=== PATIENT | male | born 1940 | race Caucasian/White ===

== ENCOUNTER → 2017-10-12 12:08 | Outpatient (CLI) | payer MEDICARE, OTHER, SELFPAY ==
--- NOTE | 2017-10-12 | DI.ECHO.S_ITS ---
[facility] +---------+ : : [address] : [place] : : : : [id number] : : : : Phone: [phone]+ Echocardiogram Report + + :Name: LILIANE TESFAYE Study Date: 10/12/2017 Height: 74 in : :[facility] Weight: 216 lb : : Gender: Male BSA: 2.2 m2 : :: 1940 Age: 77 yrs BP: 112/54 mmHg: :Reason For Study: Cardiomyopathy, Ischemic : :Ordering Physician: Dino Santa : :Melody Performed By: Savanna Callaway : :Referring: Dr. Mahesh Cook : + + Interpretation Summary The left ventricle is moderately dilated. Left ventricular systolic function is severely reduced. Left ventricular ejection fraction is estimated to be 25%. There has been no significant change since the previous study. There is severe hypokinesis to akinesis along the most of the septum, apical, mid to distal anterior, and part of anterolateral wall. The right ventricle is normal in size and function. There is a pacemaker lead in the right ventricle. The right ventricular systolic pressure is estimated at 28 mmHg assuming a right atrial pressure of 3 mm Hg. RVSP has decreased. The left atrium is severely dilated. The right atrium is moderately dilated. There is mild to moderate mitral regurgitation. There is no other significant valvular heart disease. The aortic root is normal size. Procedure: A two-dimensional transthoracic echocardiogram with color flow and Doppler was performed. The study quality was technically good. Comparison is made with the echocardiogram of 03-08-16. The heart rate ranged between 74- 76 bpm during the study. Left Ventricle: The left ventricle is moderately dilated. There is normal left ventricular wall thickness. Left ventricular systolic function is severely reduced. Left ventricular ejection fraction is estimated to be 25%. There has been no significant change since the previous study. There is severe hypokinesis to akinesis along the most of the septum, apical, mid to distal anterior, and part of anterolateral wall. Diastolic function could not be accurately assessed due to unobtainable data. Right Ventricle: The right ventricle is normal in size and function. There is a pacemaker lead in the right ventricle. Atria: The left atrium is severely dilated. The right atrium is moderately dilated. There is a catheter/pacemaker lead seen in the right atrium. The interatrial septum is intact with no evidence for an atrial septal defect. Mitral Valve: The mitral valve leaflets appear borderline thickened, but open well. There is mild to moderate mitral regurgitation. Aortic Valve: The aortic valve is trileaflet. The aortic valve opens well. No aortic regurgitation is present. Tricuspid Valve: The tricuspid valve leaflets are thin and pliable. There is trace tricuspid regurgitation. The right ventricular systolic pressure is estimated at 28 mmHg assuming a right atrial pressure of 3 mm Hg. Pulmonic Valve: The pulmonic valve is normal in structure and function. There is a trace or physiologic amount of pulmonic regurgitation. There is no other significant valvular heart disease. Great Vessels: The aortic root is normal size. The ascending aorta is normal in size. The aortic arch is normal in size. The IVC is of normal diameter and collapses greater than 50% with a sniff. This suggests a low right atrial pressure of 3 mm Hg. Pericardium/ Pleura There is no pericardial effusion. There is no pleural effusion. MMode/2D Measurements & Calculations LVIDd: 6.5 cm Ao root diam: 3.5 cm LVIDs: 5.8 cm Aortic Jxn: 2.8 cm FS: 10.1 % asc Aorta Diam: 3.1 cm EPSS: 1.1 cm Ao Arch Diam (Prox Trans): 3.0 cm IVSd: 0.96 cm LVPWd: 0.92 cm LV mckeon. diameter/BSA (cm/m^2): 2.9 LV sys. diameter/BSA (cm/m^2): 2.6 LA dimension: 5.1 cm RA long axis: 6.1 cm LA A2 area: 30.6 cm2 RA area: 26.7 cm2 LA A4 area: 35.8 cm2 RA vol: 99.7 ml LA length (vol): 6.4 cm RA : 44.4 ml/m2 LA vol: 144.2 ml IVC diam: 1.5 cm LA vol index: 64.2 ml/m2 RVDd major: 7.0 cm RVD1 (basal): 3.6 cm RVD2 (mid): 2.8 cm Doppler Measurements & Calculations Ao V2 max: 121.9 cm/sec Med Peak E' Mraciano: 6.7 cm/sec Ao V2 mean: 79.9 cm/sec Lat Peak E' Marciano: 5.6 cm/sec Ao max P.9 mmHg MV P1/2t: 54.4 msec Ao mean P.0 mmHg MR ERO: 0.27 cm2 Ao V2 VTI: 24.4 cm TR max marciano: 248.7 cm/sec MV V2 mean: 47.2 cm/sec TR max P.8 mmHg MV mean P.3 mmHg PA V2 max: 70.6 cm/sec MV V2 VTI: 19.6 cm PA V2 mean: 47.2 cm/sec PA mean P.0 mmHg PA Accel Time: 0.14 sec MV P1/2t max marciano: 114.0 cm/sec MR flow rate: 106.9 cm3/sec MVA(P1/2t): 4.0 cm2 MR PISA radius: 0.67 cm Reading Physician:LILLY
== END ==
PROVIDERS: PCP Family Medicine; Visit Provider Physician Assistant
DX: I25.5 Ischemic cardiomyopathy (principal)
CPT/HCPCS: 93306

== ENCOUNTER 2020-04-14 15:18 | Emergency (ER) | payer MEDICARE, OTHER, SELFPAY ==
[2020-04-14 15:20] VITALS: BP 169/79; PULSE 107; RESP 24; TEMP 36.1; O2SAT 95
[2020-04-14 15:52] LABS: Appearance Urine UA CLEAR; Bacteria Urine None Seen; Bilirubin Urine UA NEGATIVE (NEGATIVE); Ketones Urine UA NEGATIVE (NEGATIVE); Specific Gravity Urine UA 1.015 (1.000-1.035)
[2020-04-14 15:53] LABS: Color Urine UA ORANGE
[2020-04-14 15:54] LABS: Culture Indicated Urine Cult Not Indicated; RBC Urine 0-1/HPF (0-5/HPF); Squamous Epithelial Cell Urine 0-1 /HPF (0-5/HPF); Urine Comments PYRIDIUM PRESENT; WBC Urine 0-1/HPF (0-5/HPF)
--- NOTE | 2020-04-14 16:03 | ED.MALEGU ---
HPI - Male Genitourinary General Chief complaint: Urogenital-Male Stated complaint: URINARY ISSUES Time Seen by Provider: 04/14/20 15:24 Source: patient Mode of arrival: Ambulatory Limitations: no limitations History of Present Illness HPI Narrative: Patient is a 79-year-old male with history of coronary artery disease, ICD, COPD, BPH presenting today with urinary retention. He said he was urinating fine yesterday however this morning he started having some dribbles and difficulty. He had some mild abdominal discomfort. Bladder scan reveals over 600 mL in his bladder. He denies any back pain or painful urination. He has not had any fever. No worsening shortness of breath or chest pain. Relieving factors: none Exacerbating factors: none Related Data Home Medications Medication Instructions Recorded Confirmed digoxin [Lanoxin] 0.125 mg PO QDAY #0 01/26/16 finasteride 5 mg PO QDAY #0 tab 01/26/16 lisinopril 10 mg PO QDAY #0 01/26/16 metoprolol tartrate 100 mg PO BID #0 01/26/16 pravastatin 20 mg PO HS #0 01/26/16 terazosin 10 mg PO QDAY #0 cap 01/26/16 warfarin [Coumadin] 7.5 mg PO QDAY #0 tab 01/26/16 Allergies Allergy/AdvReac Type Severity Reaction Status Date / Time No Known Drug Allergies Allergy Verified 04/14/20 16:08 Review of Systems Review of Systems Narrative: GENERAL: Denies chills, fatigue, malaise, fever, sweats, travel HEENT: Denies sinus pain, ear pain, sore throat, difficulty swallowing, neck pain RESPIRATORY: Denies dyspnea, cough, wheezing, hemoptysis, sputum. CARDIOVASCULAR: Denies chest pain, palpitations, orthopnea, edema GASTROINTESTINAL: Denies nausea, vomiting, abdominal pain, diarrhea, constipation, melena. : See HPI MUSCULOSKELETAL: Denies weakness, joint pain, or bony pain SKIN: No rash, no erythema, no pruritus NEUROLOGIC: Denies weakness, dizziness, headache, numbness, change in speech, confusion PSYCHIATRIC: No concerning psychosocial issues. 12 point review of systems is negative except for those stated above and HPI Patient History Medical History Atrial fibrillation with rapid ventricular response COPD (chronic obstructive pulmonary disease) STEMI (ST elevation myocardial infarction) Social History Smoking Status: Current every day smoker Smoking Status: Current every day smoker Exam Initial Vital Signs Initial Vital Signs: Vital Signs Temperature 96.9 F L 04/14/20 15:20 Pulse Rate 107 H 04/14/20 15:20 Respiratory Rate 24 04/14/20 15:20 Blood Pressure 169/79 H 04/14/20 15:20 Pulse Oximetry 95 04/14/20 15:20 GENERAL: Alert 79-year-old male and in no acute distress. HEENT: Head atraumatic,EOMI, pupils reactive, face symmetric, moist mucous membranes CARDIOVASCULAR: Regular rate and rhythm without murmurs, rubs or gallops. RESPIRATORY: Breath sounds equal bilaterally, no wheezes rales or rhonchi. ABDOMEN: Soft, nontender. Normoactive bowel sounds all 4 quadrants. No guarding or rebound. : No CVA tenderness, Martínez catheter now in place orange tinged urine draining easily EXTREMITIES: Normal range of motion, no clubbing or edema. Neurovascularly intact NEUROLOGICAL: Alert and oriented x4.Normal gait and speech. SKIN: Warm, dry, no laceration, no petechiae, no rashes or lesions. Course Orders Ordered: ED Orders 04/14/20 15:45 Urinalysis and Microscopic Stat Vital Signs Vital signs: Vital Signs - 8 hr 04/14/20 15:20 04/14/20 16:59 Temperature 96.9 F L Pulse Rate 107 H 88 Respiratory Rate 24 20 Blood Pressure 169/79 H Pulse Oximetry 95 95 MDM - Male Genitourinary Lab Data Labs: Lab Results 04/14/20 Range/Units 15:45 Urine Color [place] Urine Appearance Clear Urine pH 5.0 (4.5-8.0) Ur Specific [place] 1.015 (1.000-1.035) Urine Protein TNP Urine Glucose (UA) TNP Urine Ketones Negative (NEGATIVE) Urine Occult Blood TNP Urine Nitrate TNP Urine Bilirubin Negative (NEGATIVE) Urine Urobilinogen TNP Ur Leukocyte Esterase TNP Urine RBC 0-1/hpf (0-5/HPF) Urine WBC 0-1/hpf (0-5/HPF) Ur Squamous Epith Cells 0-1 /hpf (0-5/HPF) Urine Bacteria None seen (None) Ur Culture Indicated? Cult not indicated Micro UA Comment Pyridium present MDM Narrative Medical decision making narrative: Patient states that he has a urologist in [place] and he just received a card to schedule a follow-up appointment. He is not sure why he has 1 or been there in the past, likely BPH Discharge Plan Departure Patient Disposition: Home Clinical Impression: Acute urinary retention Instructions: How to Care for Your Martínez Catheter -- Male, DI for Urinary Retention in Men Activity Restrictions/Additional Instructions: *You have been diagnosed with urinary retention *What to do: Please follow-up with your urologist. Call today. Her Martínez catheter will likely need to stay in for about 1-2 weeks. No infection at this time *Continue to take medications as directed *Follow up with your primary care provider in 2-3 days Call Urology today to schedule follow-up appointment *Return to ER if you should have blood in Martínez catheter, catheter not draining, abdominal pain or any new, worsening or concerning symptoms Prescriptions: No Action lisinopril 10 MG tablet 10 mg PO QDAY Qty: 0 RF: 0 finasteride 5 MG tablet 5 mg PO QDAY Qty: 0 RF: 0 metoprolol tartrate 100 MG tablet 100 mg PO BID Qty: 0 RF: 0 warfarin [Coumadin] 7.5 MG tablet 7.5 mg PO QDAY Qty: 0 RF: 0 pravastatin 20 MG tablet 20 mg PO HS Qty: 0 RF: 0 digoxin [Lanoxin] 125 MCG tablet 0.125 mg PO QDAY Qty: 0 RF: 0 terazosin 10 MG capsule 10 mg PO QDAY Qty: 0 RF: 0 Referrals: Lin Samuels MD [Non-Staff] - Mahesh Cook MD [Primary Care Provider] -
--- NOTE | 2020-04-14 16:06 | PC.NURSE ---
pt had taken an OTC for spasm relief, pt urine orange in color, clear.
--- NOTE | 2020-04-14 16:07 | PC.NURSE ---
pt states when he woke up this am he wasn't able to pee a lot, has continued to try, dribbling a few mil at a time. son's S/O provided an OTC med to help, turned pt urine orange in color.
[2020-04-14 16:59] VITALS: PULSE 88; RESP 20; O2SAT 95
== END 2020-04-14 16:59 | disposition home or self-care (01) ==
PROVIDERS: Emergency Provider Emergency Medicine; PCP Family Medicine
DX: R33.8 Other retention of urine (principal); I25.10 Atherosclerotic heart disease of native coronary artery without angina pectoris; J44.9 Chronic obstructive pulmonary disease, unspecified; N40.0 Benign prostatic hyperplasia without lower urinary tract symptoms; I48.91 Unspecified atrial fibrillation; Z79.01 Long term (current) use of anticoagulants
CPT/HCPCS: 51701; 81001; 99281; 99282

== ENCOUNTER 2021-03-11 12:12 | Emergency (ER) | payer MEDICARE, OTHER, SELFPAY ==
[2021-03-11] VITALS (10 sets, daily range): BP systolic 119–152; BP diastolic 61–85; PULSE 75–83; RESP 20–27; TEMP 36.3; O2SAT 94–98; BMI 28.2
--- NOTE | 2021-03-11 12:47 | DI.RAD.S_ITS ---
PROCEDURE: XR CHEST 1V INDICATIONS: chest pain TECHNIQUE: One view of the chest was acquired. COMPARISON: [facility], , CHEST 1 VIEW, 01/26/2016, 16:37. FINDINGS: Surgical changes and devices: Left chest wall pacemaker leads are in the region of right ventricle and left ventricle. Lungs and pleura: Chronic interstitial prominence is again seen suggestive of chronic interstitial lung parenchymal disease. Chronic biapical scarring is also noted. No definite focal infiltrate. No pleural effusions or pneumothorax. There is mild pulmonary vascular congestion. Mediastinum: Mediastinal contours appear normal. Heart size is enlarged. Bones and chest wall: No suspicious bony lesions. Overlying soft tissues appear unremarkable. IMPRESSION: Suggestion of chronic interstitial lung disease. No definite focal infiltrate. No pleural effusion or pneumothorax. Cardiomegaly and mild pulmonary vascular congestion. Dictated by: Homar Voss M.D. on 03/11/2021 at 13:05 Approved by: Homar Voss M.D. on 03/11/2021 at 13:06
[2021-03-11 13:07] LABS: Add Manual Diff / Slide Review NO; Basophils Absolute Auto 0 /uL (0-100); Basophils Percent Auto 0.6 % (0-2); Eosinophils Absolute Auto 200 /uL (0-450); Hematocrit 35.8 % (41-53); Hemoglobin 11.9 g/dL (13.5-17.5); Lymphocytes Absolute Auto 1300 /uL (1100-4500); Lymphocytes Percent Auto 22.6 % (25-40); Mean Corpuscular HGB Conc 33.1 % (30-36); Mean Corpuscular Hemoglobin 29.2 PG (26-34); Mean Corpuscular Volume 88.2 fL (80-100); Monocytes Absolute Auto 400 /uL (0-900); Monocytes Percent Auto 7.5 % (3-14); Neutrophils Absolute Auto 4000 /uL (1500-7000); Neutrophils Percent Auto 66.3 % (50-75); Platelet Count 182 X10^3/uL (150-400); Red Blood Cell Count 4.06 X10^6/uL (4.5-5.9); Red Cell Distribution Width 15.9 % (11.6-14.8)
[2021-03-11 13:12] LABS: INR 1.6 (0.9-1.3)
[2021-03-11 13:15] LABS: PTT Partial Thromboplastin Tim 38 SECONDS (26.4-36.2)
[2021-03-11 13:21] LABS: Alanine Aminotransferase 23 IU/L (<50); Albumin 3.8 g/dL (3.5-5.0); Albumin Globulin Ratio 1.3 (1.0-2.8); Alkaline Phosphatase 79 U/L (38-126); Aspartate Aminotransferase 29 IU/L (17-59); BUN Creatinine Ratio 22.1 (6-22); Bilirubin Total 0.6 mg/dL (0.2-1.3); Blood Urea Nitrogen 19 mg/dL (9-20); Carbon Dioxide 27 mmol/L (22-32); Chloride 105 mmol/L (98-107); Creatine Kinase 75 U/L (55-170); Estimated Glomerular Filt Rate > 60.0 mL/min (>60); Glucose 140 mg/dL (80-110); HEMOLYSIS < 15 (0-50); Lipase 79 U/L (23-300); Potassium 3.5 mmol/L (3.4-5.1); Sodium 140 mmol/L (137-145); Total Protein 6.8 g/dL (6.3-8.2)
[2021-03-11 13:37] LABS: Troponin I < 0.012 ng/mL (0.01-0.034)
[2021-03-11 15:52] LABS: Troponin I < 0.012 ng/mL (0.01-0.034)
--- NOTE | 2021-03-11 16:25 | ED.CHESTPAIN ---
HPI - Chest Pain General Chief Complaint: Chest Pain Stated Complaint: Chest pains Time Seen by Provider: 03/11/21 16:25 Source: patient Mode of arrival: Ambulatory Limitations: no limitations Limitations: no limitations History of Present Illness HPI narrative: This is a 80-year-old male who comes to the emergency department with complaint of shortness of breath and occasional chest pain. Patient states that is been going for 2-3 weeks. He states sometimes in the left sometimes on the right. Does not radiate anywhere. He has not any fevers or chills. She has had an increased cough with some clear white sputum. He denies any diaphoresis, no nausea vomiting, new swelling extremities. He does have a history of COPD, he does continue to smoke. Had angioplasty for an OK in 2016 about 2 months afterwards had an ICD placed. He had ablation which failed. He follows with Dr. Oliver for his pharmacist critical care and he is anticoagulated on warfarin. He takes metoprolol, finasteride, terazosin, simvastatin, digoxin and clopideride. Patient denies other surgeries. He denies any alcohol or illicit drugs. He states that he came today because his son made him. He would like to return home at this time. Related Data Home Medications Medication Instructions Recorded Confirmed digoxin 125 mcg (0.125 mg) tablet 0.125 mg PO QDAY #0 01/26/16 (Lanoxin) finasteride 5 mg tablet 5 mg PO QDAY #0 tab 01/26/16 lisinopril 10 mg tablet 10 mg PO QDAY #0 01/26/16 metoprolol tartrate 100 mg tablet 100 mg PO BID #0 01/26/16 pravastatin 20 mg tablet 20 mg PO HS #0 01/26/16 terazosin 10 mg capsule 10 mg PO QDAY #0 cap 01/26/16 warfarin 7.5 mg tablet (Coumadin) 7.5 mg PO QDAY #0 tab 01/26/16 Previous Rx's Medication Instructions Recorded furosemide 40 mg tablet (Lasix) 40 mg PO DAILY #7 tab 03/11/21 Allergies Allergy/AdvReac Type Severity Reaction Status Date / Time No Known Drug Allergies Allergy Verified 04/14/20 16:08 Review of Systems Review of Systems ROS Unobtainable: All systems reviewed & are unremarkable except as noted in HPI and below Patient History Medical History Atrial fibrillation with rapid ventricular response COPD (chronic obstructive pulmonary disease) STEMI (ST elevation myocardial infarction) Social History Smoking Status: Current every day smoker Smoking Status: Current every day smoker Substance Use Type: does not use Exam Narrative Exam Narrative: GENERAL: Alert and oriented x three, male in mild distress. HEENT: Head normocephalic, atraumatic, EOMI, pupils reactive, face symmetric, moist mucous membranes NECK: Supple, full range of motion CARDIOVASCULAR: Regular rate and rhythm without murmurs, rubs or gallops. RESPIRATORY: Breath sounds equal bilaterally, no wheezes, no rhonchi. Patient bilateral crackles. He has some mild tachypnea. He speaks in full sentences. ABDOMEN: Soft, nontender. Normoactive bowel sounds all 4 quadrants. No guarding or rebound, rigidity, no mass : No CVA tenderness EXTREMITIES: Normal range of motion, no edema bilateral lower extremities. Neurovascularly intact NEUROLOGICAL: Cranial nerves II through XII grossly intact. Moving all extremities SKIN: Warm, dry, no petechiae, no rashes or lesions. Initial Vital Signs Initial Vital Signs: Vital Signs Temperature 97.4 F L 03/11/21 12:28 Pulse Rate 75 03/11/21 12:28 Respiratory Rate 24 03/11/21 12:28 Blood Pressure 152/72 H 03/11/21 12:28 Pulse Oximetry 97 03/11/21 12:28 Course Orders Ordered: ED Orders 03/11/21 12:27 EKG-12 Lead Stat 03/11/21 12:47 XR chest 1V Stat 03/11/21 12:59 Complete Blood Count AUTO DIFF Stat Comprehensive Metabolic Panel Stat Lipase Stat Partial Thromboplastin Time Stat Prothrombin Time INR Stat Troponin & CK Cardiac Panel Stat 03/11/21 15:20 BNP [NT-proBNP (BNP-Adult 18+)] Stat Trop I [Troponin I] Stat 03/11/21 16:09 Urine Microscopic Stat 03/11/21 17:00 COVID19 -Nasal swab/Pre-Proc Stat Discontinued Medications Furosemide (Furosemide 40 Mg/4 Ml Vial) 40 mg IV NOW ONE Stop: 03/11/21 16:47 Last Admin: 03/11/21 16:59 Dose: 40 mg Documented by: GEE Vital Signs Vital signs: Vital Signs - 8 hr 03/11/21 12:28 03/11/21 15:12 03/11/21 15:17 Temperature 97.4 F L Pulse Rate 75 78 75 Respiratory Rate 24 23 Blood Pressure 152/72 H 127/73 Pulse Oximetry 97 97 98 03/11/21 15:30 03/11/21 16:00 03/11/21 16:02 Temperature Pulse Rate 75 83 Respiratory Rate 25 H Blood Pressure 126/71 134/85 Pulse Oximetry 97 96 94 03/11/21 16:30 03/11/21 16:31 03/11/21 17:00 Temperature Pulse Rate 78 75 75 Respiratory Rate 27 H 27 H Blood Pressure 134/61 125/61 Pulse Oximetry 94 95 96 03/11/21 17:30 Temperature Pulse Rate 76 Respiratory Rate 20 Blood Pressure 119/61 Pulse Oximetry 97 MDM - Chest Pain Lab Data Result diagrams: 03/11/21 12:59 03/11/21 12:59 Labs: Lab Results 03/11/21 03/11/21 03/11/21 Range/Units 12:59 12:59 12:59 WBC 6.0 (4.5-11.0) X10^3/uL RBC 4.06 L (4.5-5.9) X10^6/uL Hgb 11.9 L (13.5-17.5) g/dL Hct 35.8 L (41-53) % MCV 88.2 (80-100) fL MCH 29.2 (26-34) PG MCHC 33.1 (30-36) % RDW 15.9 H (11.6-14.8) % Plt Count 182 (150-400) X10^3/uL Neut % (Auto) 66.3 (50-75) % Lymph % (Auto) 22.6 L (25-40) % [place] % (Auto) 7.5 (3-14) % Eos % (Auto) 3.0 (2-4) % Baso % (Auto) 0.6 (0-2) % Neut # (Auto) 4000 (1835-1716) /uL Lymph # (Auto) 1300 (5908-5125) /uL [place] # (Auto) 400 (0-900) /uL Eos # (Auto) 200 (0-450) /uL Baso # (Auto) 0 (0-100) /uL PT 18.0 H (10.1-12.7) SECONDS INR 1.6 H (0.9-1.3) APTT 38 H (26.4-36.2) SECONDS Sodium 140 (137-145) mmol/L Potassium 3.5 (3.4-5.1) mmol/L Chloride 105 (98-107) mmol/L Carbon Dioxide 27 (22-32) mmol/L BUN 19 (9-20) mg/dL Creatinine 0.86 (0.66-1.25) mg/dL Estimated GFR > 60.0 (>60) mL/min BUN/Creatinine Ratio 22.1 H (6-22) Glucose 140 H (80-110) mg/dL Calcium 9.0 (8.4-10.2) mg/dL Total Bilirubin 0.6 (0.2-1.3) mg/dL AST 29 (17-59) IU/L ALT 23 (<50) IU/L Alkaline Phosphatase 79 (38-126) U/L Total Creatine Kinase 75 (55-170) U/L CK-MB (CK-2) TNP CK-MB (CK-2) Rel Index TNP Troponin I < 0.012 (0.01-0.034) ng/mL NT-Pro-B Natriuret Pep (<450) pg/mL Total Protein 6.8 (6.3-8.2) g/dL Albumin 3.8 (3.5-5.0) g/dL Globulin 3.0 (1.7-4.1) g/dL Albumin/Globulin Ratio 1.3 (1.0-2.8) Lipase 79 (23-300) U/L Urine RBC (0-5/HPF) Urine WBC (0-5/HPF) Ur Squamous Epith Cells (0-5/HPF) Urine Bacteria (None) Ur Culture Indicated? SARS-CoV-2 (PCR) (Negative) 03/11/21 03/11/21 03/11/21 Range/Units 15:20 15:20 16:09 WBC (4.5-11.0) X10^3/uL RBC (4.5-5.9) X10^6/uL Hgb (13.5-17.5) g/dL Hct (41-53) % MCV (80-100) fL MCH (26-34) PG MCHC (30-36) % RDW (11.6-14.8) % Plt Count (150-400) X10^3/uL Neut % (Auto) (50-75) % Lymph % (Auto) (25-40) % [place] % (Auto) (3-14) % Eos % (Auto) (2-4) % Baso % (Auto) (0-2) % Neut # (Auto) (3445-5612) /uL Lymph # (Auto) (2542-3406) /uL [place] # (Auto) (0-900) /uL Eos # (Auto) (0-450) /uL Baso # (Auto) (0-100) /uL PT (10.1-12.7) SECONDS INR (0.9-1.3) APTT (26.4-36.2) SECONDS Sodium (137-145) mmol/L Potassium (3.4-5.1) mmol/L Chloride (98-107) mmol/L Carbon Dioxide (22-32) mmol/L BUN (9-20) mg/dL Creatinine (0.66-1.25) mg/dL Estimated GFR (>60) mL/min BUN/Creatinine Ratio (6-22) Glucose (80-110) mg/dL Calcium (8.4-10.2) mg/dL Total Bilirubin (0.2-1.3) mg/dL AST (17-59) IU/L ALT (<50) IU/L Alkaline Phosphatase (38-126) U/L Total Creatine Kinase (55-170) U/L CK-MB (CK-2) CK-MB (CK-2) Rel Index Troponin I < 0.012 (0.01-0.034) ng/mL NT-Pro-B Natriuret Pep 1780 H (<450) pg/mL Total Protein (6.3-8.2) g/dL Albumin (3.5-5.0) g/dL Globulin (1.7-4.1) g/dL Albumin/Globulin Ratio (1.0-2.8) Lipase (23-300) U/L Urine RBC None seen (0-5/HPF) Urine WBC None seen (0-5/HPF) Ur Squamous Epith Cells 0-1 /hpf (0-5/HPF) Urine Bacteria None seen (None) Ur Culture Indicated? Cult not indicated SARS-CoV-2 (PCR) (Negative) 03/11/21 Range/Units 17:00 WBC (4.5-11.0) X10^3/uL RBC (4.5-5.9) X10^6/uL Hgb (13.5-17.5) g/dL Hct (41-53) % MCV (80-100) fL MCH (26-34) PG MCHC (30-36) % RDW (11.6-14.8) % Plt Count (150-400) X10^3/uL Neut % (Auto) (50-75) % Lymph % (Auto) (25-40) % [place] % (Auto) (3-14) % Eos % (Auto) (2-4) % Baso % (Auto) (0-2) % Neut # (Auto) (9454-6968) /uL Lymph # (Auto) (7621-9783) /uL [place] # (Auto) (0-900) /uL Eos # (Auto) (0-450) /uL Baso # (Auto) (0-100) /uL PT (10.1-12.7) SECONDS INR (0.9-1.3) APTT (26.4-36.2) SECONDS Sodium (137-145) mmol/L Potassium (3.4-5.1) mmol/L Chloride (98-107) mmol/L Carbon Dioxide (22-32) mmol/L BUN (9-20) mg/dL Creatinine (0.66-1.25) mg/dL Estimated GFR (>60) mL/min BUN/Creatinine Ratio (6-22) Glucose (80-110) mg/dL Calcium (8.4-10.2) mg/dL Total Bilirubin (0.2-1.3) mg/dL AST (17-59) IU/L ALT (<50) IU/L Alkaline Phosphatase (38-126) U/L Total Creatine Kinase (55-170) U/L CK-MB (CK-2) CK-MB (CK-2) Rel Index Troponin I (0.01-0.034) ng/mL NT-Pro-B Natriuret Pep (<450) pg/mL Total Protein (6.3-8.2) g/dL Albumin (3.5-5.0) g/dL Globulin (1.7-4.1) g/dL Albumin/Globulin Ratio (1.0-2.8) Lipase (23-300) U/L Urine RBC (0-5/HPF) Urine WBC (0-5/HPF) Ur Squamous Epith Cells (0-5/HPF) Urine Bacteria (None) Ur Culture Indicated? SARS-CoV-2 (PCR) Negative (Negative) Urine Dip Bedside Urine Glucose Negative Bedside Urine Bilirubin - Negative Bedside Urine Ketone - Negative Urine Specific [place] 1.025 Bedside Urine Occult Blood + Bedside Urine pH 6.0 Bedside Urine Protein - Negative Bedside Urine Urobilinogen - Negative Bedside Urine Nitrite - Negative Bedside Urine Leukocytes - Negative Esterase Imaging Data Chest x-ray: Radiologist's Impression: Launch?Image [address] [address] XRay Report Signed Patient: Tomas El MR#: [id number] : 1940 Acct:[id number] Age/Sex: 80 / M Date of Service: 03/11/21 Loc: ED Accession Number: [id number] ?? Procedure: XR chest 1V Ordering Provider: Carolina Evans D.O. PROCEDURE:? XR CHEST 1V ? INDICATIONS:? chest pain ? TECHNIQUE:? One view of the chest was acquired.? ? COMPARISON:? [facility], , CHEST 1 VIEW, 01/26/2016, 16:37. ? FINDINGS:? ? Surgical changes and devices:? Left chest wall pacemaker leads are in the region of right ventricle and left ventricle. ? Lungs and pleura:? Chronic interstitial prominence is again seen suggestive of chronic interstitial lung parenchymal disease.? Chronic biapical scarring is also noted.? No definite focal infiltrate.? No pleural effusions or pneumothorax.? There is mild pulmonary vascular congestion. ? Mediastinum:? Mediastinal contours appear normal.? Heart size is enlarged.? ? Bones and chest wall:? No suspicious bony lesions.? Overlying soft tissues appear unremarkable.? ? IMPRESSION:? Suggestion of chronic interstitial lung disease.? No definite focal infiltrate.? No pleural effusion or pneumothorax.? Cardiomegaly and mild pulmonary vascular congestion. ? ? Dictated by: Homar Voss M.D. on 03/11/2021 at 13:05 ? ? Approved by: Homar Voss M.D. on 03/11/2021 at 13:06 ECG Data Attestation: I personally reviewed and interpreted this ECG as follows: Prior ECG tracings: available for review Interpretation: Rate of 94, QRS of 150 QTC of 510, ventricularly paced rhythm. Nonspecific change. Patient does have prior from 12/24/2019. It is not paced. EKG 2. Shows ventricular paced rhythm with frequent PVC. Rate of 82 QRS of 128 QTC of 474. Overall patient's EKG appears fairly similar. MDM Narrative Medical decision making narrative: 80-year-old male who comes in with main complaint of shortness of breath occasional chest discomfort on the left sometimes on right. Been going on for several weeks. He has had some shortness of breath. He denies any syncope. He does not appreciate worsening swelling. His is negative but his BNP is elevated he does have a cardiac history with an ICD, angioplasty after OK in 2016, failed ablation follows with Dr. Oliver Cardiology. Patient does not have any acute EKG changes here in the department. Repeat troponin was negative. Patient wishes to return home he does appear fluid overloaded based on his imaging labs with mild swelling in his lower extremities. He is not normally on a diuretic. We did discuss that he should have the for further workup with his pharmacist critical care shortly. Discharge Plan Departure Patient Disposition: Home Clinical Impression: CHF (congestive heart failure) Instructions: DI for Heart Failure Activity Restrictions/Additional Instructions: Follow-up with your pharmacist critical care in the next week. Call for an appointment. Your labs today do show that you are fluid overload. Continue home medications as prescribed. I would recommend taking a diuretic daily. Prescription sent to [facility] in [place]. Please return for new or worsening chest pain, shortness of breath, lightheadedness or passing out, swelling of your extremities, vomiting, or other new or worsening symptoms. Prescriptions: New furosemide [Lasix] 40 mg tablet 40 mg PO DAILY Qty: 7 0RF No Action lisinopril 10 MG tablet 10 mg PO QDAY Qty: 0 0RF finasteride 5 MG tablet 5 mg PO QDAY Qty: 0 0RF metoprolol tartrate 100 MG tablet 100 mg PO BID Qty: 0 0RF warfarin [Coumadin] 7.5 MG tablet 7.5 mg PO QDAY Qty: 0 0RF pravastatin 20 MG tablet 20 mg PO HS Qty: 0 0RF digoxin [Lanoxin] 125 MCG tablet 0.125 mg PO QDAY Qty: 0 0RF terazosin 10 MG capsule 10 mg PO QDAY Qty: 0 0RF Referrals: New Fields MD [Primary Care Provider] -
[2021-03-11 16:54] LABS: NT-proBNP (BNP-Adult 18+) 1780 pg/mL (<450)
[2021-03-11] MEDS: FUROSEMIDE 40 MG/4 ML VIAL IV (16:59)
[2021-03-11 17:21] LABS: COVID19 -Nasal RAPID Negative (Negative)
[2021-03-11 17:38] LABS: Bacteria Urine None Seen; Culture Indicated Urine Cult Not Indicated; RBC Urine None Seen (0-5/HPF); Squamous Epithelial Cell Urine 0-1 /HPF (0-5/HPF); WBC Urine None Seen (0-5/HPF)
--- NOTE | 2021-03-11 17:51 | PC.NURSE ---
I spoke with the patient's daughter Tawnya on the phone per his request and gave her info/an update.
== END 2021-03-11 17:52 | disposition home or self-care (01) ==
PROVIDERS: Emergency Provider Emergency Medicine; PCP Internal Medicine
DX: I50.9 Heart failure, unspecified (principal); R07.9 Chest pain, unspecified
CPT/HCPCS: 36415; 71045; 80053; 81003; 81015; 82550; 83690; 83880; 84484; 85025; 85610; 85730; 87635; 93005; 93010; 96374; 99284; C9803; J1940

== ENCOUNTER 2021-08-14 14:46 | Emergency (ER) | payer MEDICARE, OTHER, SELFPAY ==
[2021-08-14] VITALS (15 sets, daily range): BP systolic 81–119; BP diastolic 46–58; PULSE 75–105; RESP 20–22; TEMP 36.6; O2SAT 95–97; BMI 28.2
--- NOTE | 2021-08-14 15:04 | DI.RAD.S_ITS ---
PROCEDURE: XR CHEST 1V INDICATIONS: chest pain TECHNIQUE: One view of the chest was acquired. COMPARISON: [facility], CR, XR CHEST 1V, 03/11/2021, 12:48. FINDINGS: Surgical changes and devices: Pacemaker. Lungs and pleura: Chronic interstitial changes are present. Mediastinum: Mediastinal contours appear normal. Heart size is enlarged. Bones and chest wall: No suspicious bony lesions. Overlying soft tissues appear unremarkable. IMPRESSION: Chronic interstitial changes suggestive of interstitial lung disease. However, superimposed areas of edema or atelectasis cannot be excluded. Dictated by: Cata Perla M.D. on 08/14/2021 at 16:43 Approved by: Cata Perla M.D. on 08/14/2021 at 16:43
[2021-08-14 15:35] LABS: Add Manual Diff / Slide Review NO; Basophils Absolute Auto 0 /uL (0-100); Basophils Percent Auto 0.5 % (0-2); Eosinophils Absolute Auto 100 /uL (0-450); Eosinophils Percent Auto 1.1 % (2-4); Hematocrit 36.5 % (41-53); Hemoglobin 12.1 g/dL (13.5-17.5); Lymphocytes Absolute Auto 1200 /uL (1100-4500); Lymphocytes Percent Auto 17.7 % (25-40); Mean Corpuscular HGB Conc 33.2 % (30-36); Mean Corpuscular Hemoglobin 29.4 PG (26-34); Mean Corpuscular Volume 88.7 fL (80-100); Monocytes Absolute Auto 300 /uL (0-900); Monocytes Percent Auto 4.7 % (3-14); Neutrophils Absolute Auto 5400 /uL (1500-7000); Platelet Count 156 X10^3/uL (150-400); Red Blood Cell Count 4.12 X10^6/uL (4.5-5.9); Red Cell Distribution Width 15.5 % (11.6-14.8)
[2021-08-14 15:52] LABS: Alanine Aminotransferase 18 IU/L (<50); Albumin Globulin Ratio 1.2 (1.0-2.8); Alkaline Phosphatase 72 U/L (38-126); Aspartate Aminotransferase 25 IU/L (17-59); BUN Creatinine Ratio 15.3 (6-22); Bilirubin Total 0.9 mg/dL (0.2-1.3); Blood Urea Nitrogen 18 mg/dL (9-20); Calcium 8.8 mg/dL (8.4-10.2); Carbon Dioxide 26 mmol/L (22-32); Chloride 104 mmol/L (98-107); Creatine Kinase 48 U/L (55-170); Estimated Glomerular Filt Rate > 60 mL/min (>60); Globulin 3.4 g/dL (1.7-4.1); Glucose 195 mg/dL (80-110); HEMOLYSIS < 15 (0-50); Lipase 102 U/L (23-300); Magnesium 1.6 mg/dL (1.6-2.3); Potassium 3.3 mmol/L (3.4-5.1); Sodium 138 mmol/L (137-145); Total Protein 7.4 g/dL (6.3-8.2)
[2021-08-14 16:03] LABS: Troponin I < 0.012 ng/mL (0.01-0.034)
[2021-08-14 16:29] LABS: NT-proBNP (BNP-Adult 18+) 1850 pg/mL (<450)
--- NOTE | 2021-08-14 16:37 | ED_ITS ---
HPI - General Adult General Chief complaint: Dizziness Stated complaint: COVID+, Dizzy Time Seen by Provider: 08/14/21 15:12 Source: patient Mode of arrival: Ambulatory History of Present Illness HPI narrative: Patient is a 81-year-old male. Has a history of COPD. Earlier this week he started to develop cough and fevers and had a home COVID test that was positive. Patient is vaccinated against COVID. Since that time he states that he is still having some shortness of breath and coughing. He does have a pulse ox at home and states that it has ranged from 93-96. No fevers. No chest pain. He is feeling somewhat dizzy. He is taking all of his medications. Related Data Home Medications Medication Instructions Recorded Confirmed digoxin 125 mcg (0.125 mg) tablet 0.125 mg PO QDAY #0 01/26/16 (Lanoxin) finasteride 5 mg tablet 5 mg PO QDAY #0 tab 01/26/16 lisinopril 10 mg tablet 10 mg PO QDAY #0 01/26/16 metoprolol tartrate 100 mg tablet 100 mg PO BID #0 01/26/16 pravastatin 20 mg tablet 20 mg PO HS #0 01/26/16 terazosin 10 mg capsule 10 mg PO QDAY #0 cap 01/26/16 warfarin 7.5 mg tablet (Coumadin) 7.5 mg PO QDAY #0 tab 01/26/16 Previous Rx's Medication Instructions Recorded furosemide 40 mg tablet (Lasix) 40 mg PO DAILY #7 tab 03/11/21 Allergies Allergy/AdvReac Type Severity Reaction Status Date / Time No Known Drug Allergies Allergy Verified 04/14/20 16:08 Review of Systems Constitutional Constitutional: Reports system reviewed and no additional complaints, except as documented Cardiovascular Cardiovascular: Reports system reviewed and no additional complaints, except as documented Respiratory Respiratory: Reports system reviewed and no additional complaints, except as documented Gastrointestinal Gastrointestinal: Reports system reviewed and no additional complaints, except as documented Integumentary/Breasts Skin/Breast: Reports system reviewed and no additional complaints, except as documented Neurologic Neurologic: Reports system reviewed and no additional complaints, except as documented Hematologic/Lymphatic On Anticoagulants: Yes Patient History Medical History Atrial fibrillation with rapid ventricular response COPD (chronic obstructive pulmonary disease) STEMI (ST elevation myocardial infarction) Social History Smoking Status: Current every day smoker Smoking Status: Current every day smoker Substance Use Type: does not use Exam Initial Vital Signs Initial Vital Signs: Vital Signs Temperature 97.9 F 08/14/21 14:56 Pulse Rate 95 H 08/14/21 14:56 Respiratory Rate 20 08/14/21 14:56 Blood Pressure 119/57 L 08/14/21 14:56 Pulse Oximetry 97 08/14/21 14:56 HENMT Head: normal to inspection and normocephalic Resp Effort & Inspection: labored, no respiratory distress and tachypneic Auscultation: clear to auscultation bilaterally Cardio Rate: regular rate Rhythm: regular rhythm GI Inspection: normal to inspection Skin General: no rashes or lesions noted Neuro General: patient alert, patient awake and moves all extremities Extrem General: normal to inspection and capillary refill normal Psych Appearance: grossly normal Course Orders Ordered: ED Orders 08/14/21 15:04 XR chest 1V Stat EKG-12 Lead Stat 08/14/21 15:22 BNP [NT-proBNP (BNP-Adult 18+)] Stat Complete Blood Count AUTO DIFF Stat Comprehensive Metabolic Panel Stat Lipase Stat Magnesium Stat Troponin & CK Cardiac Panel Stat Discontinued Medications Sodium Chloride (Normal Saline 0.9%) 1,000 mls @ 500 mls/hr IV BOLUS ONE Stop: 08/14/21 18:16 Last Admin: 08/14/21 16:39 Dose: 500 mls/hr Documented by: IZAIAH Vital Signs Vital signs: Vital Signs - 8 hr 08/14/21 14:56 08/14/21 15:13 08/14/21 15:14 Temperature 97.9 F Pulse Rate 95 H 95 H 94 H Respiratory Rate 20 Blood Pressure 119/57 L Pulse Oximetry 97 97 08/14/21 15:15 08/14/21 15:19 08/14/21 15:26 Temperature Pulse Rate 98 H 94 H 94 H Respiratory Rate 22 22 22 Blood Pressure 103/58 L 98/56 L 105/58 L Pulse Oximetry 96 96 97 08/14/21 15:30 08/14/21 16:00 08/14/21 16:01 Temperature Pulse Rate 98 H 105 H 101 H Respiratory Rate 22 Blood Pressure 98/56 L 81/46 L Pulse Oximetry 97 96 97 08/14/21 16:07 08/14/21 16:08 08/14/21 16:30 Temperature Pulse Rate 82 80 77 Respiratory Rate 22 21 Blood Pressure 84/54 L 86/54 L 97/52 L Pulse Oximetry 96 96 97 08/14/21 17:00 08/14/21 17:30 08/14/21 18:00 Temperature Pulse Rate 75 75 75 Respiratory Rate 22 20 22 Blood Pressure 99/50 L 104/54 L 100/52 L Pulse Oximetry 95 95 97 Medical Decision Making Lab Data Lab results reviewed: Yes I reviewed the patient's lab results. Result diagrams: 08/14/21 15:22 08/14/21 15: Labs: Lab Results 08/14/21 08/14/21 08/14/21 Range/Units 15: 15: 15:22 WBC 7.0 (4.5-11.0) X10^3/uL RBC 4.12 L (4.5-5.9) X10^6/uL Hgb 12.1 L (13.5-17.5) g/dL Hct 36.5 L (41-53) % MCV 88.7 (80-100) fL MCH 29.4 (26-34) PG MCHC 33.2 (30-36) % RDW 15.5 H (11.6-14.8) % Plt Count 156 (150-400) X10^3/uL Neut % (Auto) 76.0 H (50-75) % Lymph % (Auto) 17.7 L (25-40) % [place] % (Auto) 4.7 (3-14) % Eos % (Auto) 1.1 L (2-4) % Baso % (Auto) 0.5 (0-2) % Neut # (Auto) 5400 (9480-7623) /uL Lymph # (Auto) 1200 (9550-7402) /uL [place] # (Auto) 300 (0-900) /uL Eos # (Auto) 100 (0-450) /uL Baso # (Auto) 0 (0-100) /uL Sodium 138 (137-145) mmol/L Potassium 3.3 L (3.4-5.1) mmol/L Chloride 104 (98-107) mmol/L Carbon Dioxide 26 (22-32) mmol/L BUN 18 (9-20) mg/dL Creatinine 1.18 (0.66-1.25) mg/dL Estimated GFR > 60 (>60) mL/min BUN/Creatinine Ratio 15.3 (6-22) Glucose 195 H (80-110) mg/dL Calcium 8.8 (8.4-10.2) mg/dL Magnesium 1.6 (1.6-2.3) mg/dL Total Bilirubin 0.9 (0.2-1.3) mg/dL AST 25 (17-59) IU/L ALT 18 (<50) IU/L Alkaline Phosphatase 72 (38-126) U/L Total Creatine Kinase 48 L (55-170) U/L CK-MB (CK-2) TNP CK-MB (CK-2) Rel Index TNP Troponin I < 0.012 (0.01-0.034) ng/mL NT-Pro-B Natriuret Pep 1850 H (<450) pg/mL Total Protein 7.4 (6.3-8.2) g/dL Albumin 4.0 (3.5-5.0) g/dL Globulin 3.4 (1.7-4.1) g/dL Albumin/Globulin Ratio 1.2 (1.0-2.8) Lipase 102 (23-300) U/L Imaging Data Chest x-ray: Radiologist's Impression: [address] [address] XRay Report Signed Patient: Tomas El MR#: [id number] : 1940 Acct:[id number] Age/Sex: 81 / M Date of Service: 08/14/21 Loc: ED Accession Number: [id number] ?? Procedure: XR chest 1V Ordering Provider: Homer Andrew D.O. PROCEDURE:? XR CHEST 1V ? INDICATIONS:? chest pain ? TECHNIQUE:? One view of the chest was acquired.? ? COMPARISON:? [facility], , XR CHEST 1V, 03/11/2021, 12:48. ? FINDINGS:? ? Surgical changes and devices:? Pacemaker. ? Lungs and pleura:? Chronic interstitial changes are present. ? Mediastinum:? Mediastinal contours appear normal.? Heart size is enlarged. ? Bones and chest wall:? No suspicious bony lesions.? Overlying soft tissues appear unremarkable.? ? IMPRESSION:? Chronic interstitial changes suggestive of interstitial lung disease.? However, superimposed areas of edema or atelectasis cannot be excluded. ? ? Dictated by: Cata Perla M.D. on 08/14/2021 at 16:43 ? ? Approved by: Cata Perla M.D. on 08/14/2021 at 16:43?? ECG Data Attestation: I personally reviewed and interpreted this ECG as follows: Interpretation: Ventricular paced Rate of 89 MDM Narrative Medical decision making narrative: Patient is having some labored breathing but this is normal for him. He is not hypoxic. Lungs are clear. Afebrile. Is known to be COVID positive. I suspect that his symptoms are related to his COVID status and his underlying lung issues. Fortunately he is no longer a candidate for Paxlvid. He is not requiring oxygen. Not hypoxic. No indication for admission to the hospital. Low suspicion for acute CHF given his presentation despite findings of the chest x-ray. Will discharge home with strict return precautions. He expressed understanding and agreement. Discharge Plan Departure Patient Disposition: Home Clinical Impression: COVID-19 Instructions: DI for COVID-19 (Suspected or Confirmed ) Activity Restrictions/Additional Instructions: Recommend you continue to take all of your medications as directed. Contact your primary doctor for follow-up. Be sure to continue to check your oxygen saturations at home and return to the emergency department if they are consis tently below 90 or if you have any other new or worsening symptoms. Prescriptions: No Action lisinopril 10 MG tablet 10 mg PO QDAY Qty: 0 0RF finasteride 5 MG tablet 5 mg PO QDAY Qty: 0 0RF metoprolol tartrate 100 MG tablet 100 mg PO BID Qty: 0 0RF warfarin [Coumadin] 7.5 MG tablet 7.5 mg PO QDAY Qty: 0 0RF pravastatin 20 MG tablet 20 mg PO HS Qty: 0 0RF digoxin [Lanoxin] 125 MCG tablet 0.125 mg PO QDAY Qty: 0 0RF terazosin 10 MG capsule 10 mg PO QDAY Qty: 0 0RF furosemide [Lasix] 40 mg tablet 40 mg PO DAILY Qty: 7 0RF Referrals: New Fields MD [Primary Care Provider] -
[2021-08-14] MEDS: SODIUM CHLORIDE 0.9% 1,000 ML 500 ML IV (16:39)
== END 2021-08-14 18:15 | disposition home or self-care (01) ==
PROVIDERS: Emergency Provider Emergency Medicine; PCP Internal Medicine
DX: U07.1 COVID-19 (principal); R07.9 Chest pain, unspecified
CPT/HCPCS: 71045; 80053; 82550; 83690; 83735; 83880; 84484; 85025; 93005; 99284

== ENCOUNTER 2022-09-05 17:56 | Emergency (ER) | payer MEDICARE, OTHER, SELFPAY ==
[2022-09-05 18:02] VITALS: BP 109/57; PULSE 84; RESP 19; TEMP 36.8; O2SAT 98; BMI 26.6
--- NOTE | 2022-09-05 18:10 | DI.RAD.S_ITS ---
PROCEDURE: XR ANKLE RT MIN 3V INDICATIONS: fall on thinners TECHNIQUE: 3 views of the ankle were acquired. COMPARISON: None. FINDINGS: Bones: Ankle mortise is intact. Corticated osseous structure along the lateral aspect of the foot adjacent to the calcaneus or cuboid likely representing cycle of remote trauma versus assess 3 ossicle. Soft tissues: No tibiotalar joint effusion. Soft tissue swelling predominantly of the lateral ankle. Vascular calcifications throughout the ankle and foot. Small plantar fascial insertions these fight. IMPRESSION: Soft tissue swelling without acute osseous abnormality. Dictated by: Danny Chiang D.O. on 09/05/2022 at 17:44 Approved by: Danny Chiang D.O. on 09/05/2022 at 17:46
[2022-09-05 18:18] VITALS: PULSE 94; RESP 34
[2022-09-05 18:30] VITALS: PULSE 86; RESP 23; O2SAT 97
[2022-09-05 19:00] VITALS: PULSE 75; O2SAT 95
[2022-09-05 19:30] VITALS: PULSE 75; O2SAT 98
--- NOTE | 2022-09-06 03:21 | ED_ITS ---
HPI - Extremity Injury (Lower) General Chief Complaint: Trauma Stated Complaint: poss broken R/foot Time Seen by Provider: 09/05/22 18:12 Source: patient Mode of arrival: Family Vehicle History of Present Illness HPI Narrative: 82-year-old male daily smoker with history of atrial fibrillation on Coumadin, hypertension presents with family in the chief complaint of a right ankle injury suffered yesterday. He states that he was ambulating in the litter room in everted his right ankle which caused him to fall to the ground. He has full recall of the event denies any head neck or back pain. He denies striking his head. He denies any chest pain or shortness of breath. He has swelling over the lateral ankle and states he has increased pain with palpation and attempts at ambulation and improvement with rest. He denies any hip or knee pain Related Data Home Medications Medication Instructions Recorded Confirmed digoxin 125 mcg (0.125 mg) tablet 0.125 mg PO QDAY ##0 01/26/16 (Lanoxin) finasteride 5 mg tablet 5 mg PO QDAY #0 tabs 01/26/16 lisinopril 10 mg tablet 10 mg PO QDAY ##0 01/26/16 metoprolol tartrate 100 mg tablet 100 mg PO BID ##0 01/26/16 pravastatin 20 mg tablet 20 mg PO HS ##0 01/26/16 terazosin 10 mg capsule 10 mg PO QDAY #0 caps 01/26/16 warfarin 7.5 mg tablet (Coumadin) 7.5 mg PO QDAY #0 tabs 01/26/16 Previous Rx's Medication Instructions Recorded furosemide 40 mg tablet (Lasix) 40 mg PO DAILY #7 tabs 03/11/21 Allergies Allergy/AdvReac Type Severity Reaction Status Date / Time No Known Drug Allergies Allergy Verified 04/14/20 16:08 Review of Systems Review of Systems Narrative: GENERAL: Denies chills, fatigue, malaise, fever, sweats. HEENT: Denies sinus pain, ear pain, sore throat, difficulty swallowing, dizziness. RESPIRATORY: Denies dyspnea, cough, wheezing, hemoptysis, sputum. CARDIOVASCULAR: Denies chest pain, palpitations, orthopnea, edema, GASTROINTESTINAL: Denies nausea, vomiting, abdominal pain, diarrhea, constipation, melena. : Denies dysuria, frequency, incontinence, hematuria, urinary retention. MUSCULOSKELETAL: See HPI SKIN: Denies rash, skin lesions, or other NEUROLOGIC: Denies weakness, headache, numbness, change in speech, confusion, seizures, incoordination. PSYCHIATRIC: No concerning psychosocial issues. 12 point review of systems is negative except for those stated above Patient History Medical History Atrial fibrillation with rapid ventricular response COPD (chronic obstructive pulmonary disease) STEMI (ST elevation myocardial infarction) Social History Smoking Status: Current every day smoker Smoking Status: Current every day smoker tobacco type: cigarettes alcohol intake frequency: 0-2 drinks per day Substance Use Type: does not use Exam Narrative Exam Narrative: GENERAL: [82] year old patient appears stated age. Well-developed patient, in mild distress. GCS 15 HEAD: Atraumatic. Normocephalic. No evidence of contusion, abrasion, laceration or any external manifestation of head injury EYES: Pupils equal round and reactive. No hyphema Extraocular motions intact. No scleral icterus. No injection or drainage. ENT: Nose without bleeding, purulent drainage. No nasal septal hematoma Throat without erythema, tonsillar hypertrophy or exudate. Airway patent. NECK: Trachea midline. Non tender CARDIOVASCULAR: Regular rate and rhythm without murmurs, gallops, or rubs. RESPIRATORY: Clear to auscultation. Breath sounds equal bilaterally. No wheezes, rales, or rhonchi. GASTROINTESTINAL: Abdomen soft, non-tender, nondistended. EXTREMITIES: Right ankle with pain and swelling just inferior to lateral malleolus, no pain on medial malleolus overlying talus, no pain in foot, calcaneus, negative squeeze test, no pain in knee or hip. No ligamentous lax ity, this is closed, isolated and neurovascularly intact BACK: Nontender without deformity or crepitance. No flank tenderness. NEURO: AOx3. SKIN: No rash or erythema of visible areas Initial Vital Signs Initial Vital Signs: Vital Signs Temperature 98.2 F 09/05/22 18:02 Pulse Rate 84 09/05/22 18:02 Respiratory Rate 19 09/05/22 18:02 Blood Pressure 109/57 L 09/05/22 18:02 Pulse Oximetry 98 09/05/22 18:02 Oxygen Delivery Method Room Air 09/05/22 18:02 Procedures Orthopedic Splinting/Casting Injury #1: Side: right Lower Extremity Injury Location: ankle Lower Extremity Immobilizer: stirrup splint Post splinting neuro exam: intact Post splinting vascular exam: intact Placed by: Nursing Course Vital Signs Vital signs: Vital Signs - 8 hr 09/05/22 19:30 Pulse Rate 75 Pulse Oximetry 98 MDM - Extremity Injury (Lower) MDM Narrative Medical decision making narrative: [82] year old patient presents with fall and right ankle pain Multiple etiologies for patient's symptoms considered including, but not limited to: [Fracture versus dislocation versus sprain versus contusion versus other] Prior Charts reviewed in our EMR Primary Historian: patient Imaging reviewed: X-ray without evidence of fracture or dislocation Patient's symptoms improved over duration of stay with above-stated therapies. Patient with ground level fall and isolated right ankle injury. He has full recall of the event and absolutely denies any head injury, head pain or neurologic symptoms such as dizziness, blurred vision, trouble speech. Imaging shows no fracture, patient splinted, pain is well controlled he is given return precautions Findings and discharge diagnosis discussed with patient/family followed by verbalization of understanding Return precautions discussed with patient/family whom verbalize understanding of diagnosis and plan Discharge Plan Departure Patient Disposition: Home Clinical Impression: Ankle sprain Activity Restrictions/Additional Instructions: *You have been diagnosed with [right ankle sprain. As we discussed there is no evidence of fracture or dislocation] *What to do: *Please continue to take your regular medications as directed. *Please follow up with your primary care provider in 2-3 days, call for an ap pointment. Let them know you were seen in the Emergency Department and that we ask that you be seen in follow up. We will electronically transmit a record of today's note if your PCP is in our system *If you do not have a primary care provider please contact the [facility] Resource line at [phone]. They will ask some questions about your medical history and help get you set up with a doctor in the community. *Return to Emergency Department if you should have any new, worsening or concerning symptoms, such as [fever greater than 101 F, shaking chills, worsening pain, persistent vomiting or other bothersome symptoms] Prescriptions: No Action lisinopril 10 MG tablet 10 mg PO QDAY Qty: 0 finasteride 5 MG tablet 5 mg PO QDAY Qty: 0 metoprolol tartrate 100 MG tablet 100 mg PO BID Qty: 0 warfarin [Coumadin] 7.5 MG tablet 7.5 mg PO QDAY Qty: 0 pravastatin 20 MG tablet 20 mg PO HS Qty: 0 digoxin [Lanoxin] 125 MCG tablet 0.125 mg PO QDAY Qty: 0 terazosin 10 MG capsule 10 mg PO QDAY Qty: 0 furosemide [Lasix] 40 mg tablet 40 mg PO DAILY Qty: 7 0RF Referrals: New Fields MD [Primary Care Provider] - Stand Alone Forms: Patient Portal/API
== END 2022-09-05 19:51 | disposition home or self-care (01) ==
PROVIDERS: Emergency Provider Emergency Medicine; PCP Internal Medicine
DX: S93.401A Sprain of unspecified ligament of right ankle, initial encounter (principal); W18.30XA Fall on same level, unspecified, initial encounter
CPT/HCPCS: 73610; 99283

== ENCOUNTER 2022-09-10 07:26 | Emergency (ER) | payer MEDICARE, OTHER, SELFPAY ==
--- NOTE | 2022-09-10 07:42 | ED.GENADULT ---
HPI - General Adult General Chief complaint: Urogenital-Male Stated complaint: cath issues Time Seen by Provider: 09/10/22 07:34 History of Present Illness HPI narrative: 82-year-old male with history of coronary artery disease, AFib on warfarin, BPH and recent Limon catheter swab for urinary retention presents stating his Limon catheter stopped draining over the course of the night. He denies any blood or sediment in the tube. He denies any damage to the catheter. He is had no fever or chills. He denies any dizziness, weakness or lightheadedness. He has some fullness in his central lower abdomen. Related Data Home Medications Medication Instructions Recorded Confirmed digoxin 125 mcg (0.125 mg) tablet 0.125 mg PO QDAY ##0 01/26/16 09/10/22 (Lanoxin) finasteride 5 mg tablet 5 mg PO QDAY #0 tabs 01/26/16 09/10/22 lisinopril 10 mg tablet 10 mg PO QDAY ##0 01/26/16 09/10/22 metoprolol tartrate 100 mg tablet 200 mg PO BID ##0 01/26/16 09/10/22 warfarin 7.5 mg tablet (Coumadin) 5 mg PO QDAY #0 tabs 01/26/16 09/10/22 alfuzosin 10 mg tablet,extended 10 mg PO DAILY 09/10/22 09/10/22 release 24 hr aspirin 81 mg capsule 81 mg PO DAILY 09/10/22 09/10/22 rosuvastatin 40 mg tablet 40 mg PO DAILY 09/10/22 09/10/22 spironolactone 25 mg tablet 25 mg PO DAILY 09/10/22 09/10/22 Previous Rx's Medication Instructions Recorded cephalexin 500 mg capsule 500 mg PO BID #20 caps 09/10/22 Allergies Allergy/AdvReac Type Severity Reaction Status Date / Time No Known Drug Allergies Allergy Verified 09/10/22 08:04 Review of Systems Review of Systems Narrative: GENERAL: Denies chills, fatigue, malaise, fever, sweats. HEENT: Denies sinus pain, ear pain, sore throat, difficulty swallowing, dizziness. RESPIRATORY: Denies dyspnea, cough, wheezing, hemoptysis, sputum. CARDIOVASCULAR: Denies chest pain, palpitations, orthopnea, edema, GASTROINTESTINAL: Denies nausea, vomiting, abdominal pain, diarrhea, constipation, melena. : See HPI MUSCULOSKELETAL: denies weakness, joint pain, or bony pain SKIN: Denies rash, skin lesions, or other NEUROLOGIC: Denies weakness, headache, numbness, change in speech, confusion, seizures, incoordination. PSYCHIATRIC: No concerning psychosocial issues. 12 point review of systems is negative except for those stated above Patient History Medical History Atrial fibrillation with rapid ventricular response COPD (chronic obstructive pulmonary disease) STEMI (ST elevation myocardial infarction) Social History Smoking Status: Current every day smoker Smoking Status: Current every day smoker tobacco type: cigarettes alcohol intake frequency: 0-2 drinks per day Substance Use Type: does not use Exam Narrative Exam Narrative: GEN: AOx3 and in mild distress EYES: Pupils are equal, round, and reactive to light and accommodation. Extraoccular muscles are intact bilaterally. There is no subconjunctival hemorrhage or exudate. CHEST: Lungs are clear to auscultation bilaterally and free of wheezes, rales, or rhonchi. Heart rate is regular rhythm, there are no murmurs, clicks, rubs, or gallops. There is no chest wall tenderness. ABD: Abdomen is soft and minimally tender in the suprapubic region. There is no guarding or rebound. Bowel sounds are normal in all 4 quadrants. There is no mass or organomegaly. EXT: Full painless ROM of all extremities with no loss of sensation or strength. SKIN: Warm, pink, and dry. No erythema or rash Initial Vital Signs Initial Vital Signs: Vital Signs Temperature 98.5 F 09/10/22 07:50 Pulse Rate 84 09/10/22 07:50 Respiratory Rate 17 09/10/22 07:50 Blood Pressure 131/58 L 09/10/22 07:50 Pulse Oximetry 98 09/10/22 07:50 Oxygen Delivery Method Room Air 09/10/22 07:50 Course Orders Ordered: ED Orders 09/10/22 07:45 Urinalysis and Microscopic Stat Urine Culture Stat Reevaluation(s) Reevaluation #1: Patient feels complete relief after Limon catheter care, now draining, no longer having abdominal pain Vital Signs Vital signs: Vital Signs - 8 hr 09/10/22 07:50 Temperature 98.5 F Pulse Rate 84 Respiratory Rate 17 Blood Pressure 131/58 L Pulse Oximetry 98 Oxygen Delivery Method Room Air Medical Decision Making Lab Data Labs: Lab Results 09/10/22 Range/Units 07:45 Urine Color Yellow Urine Appearance Cloudy Urine pH 5.5 (4.5-8.0) Ur Specific [place] 1.025 (1.000-1.035) Urine Protein 2+ H (Negative) Urine Glucose (UA) Negative (Negative) g/dL Urine Ketones Negative (NEGATIVE) Urine Occult Blood 3+ H (Negative) Urine Nitrate Negative (Negative) Urine Bilirubin Negative (NEGATIVE) Urine Urobilinogen 4.0 H (0.2) E.U./dL Ur Leukocyte Esterase 2+ H (NEGATIVE) Urine RBC 30-100/hpf H (0-5/HPF) Urine WBC >100/hpf H (0-5/HPF) Ur Squamous Epith Cells 0-1 /hpf (0-5/HPF) Urine Bacteria Many (>30) H (None) Ur Culture Indicated? Specimen cultured MDM Narrative Medical decision making narrative: [82] year old patient presents with limon catheter problem Multiple etiologies for patient's symptoms considered including, but not limited to: [Equipment malfunction versus clot versus infection versus other] Prior Charts reviewed in our EMR Primary Historian: patient Labs reviewed and interpreted by myself: UA consistent with ITU Nursing performed limon care with flush, urine flow back to normal. Patient's symptoms improved over duration of stay with above-stated therapies. Patient does have evidence of a UTI, no signs of sepsis, no need for further workup Findings and discharge diagnosis discussed with patient/family followed by verbalization of understanding Return precautions discussed with patient/family whom verbalize understanding of diagnosis and plan Discharge Plan Departure Patient Disposition: Home Clinical Impression: Acute UTI Instructions: DI for Urinary Tract Infection (UTI) Activity Restrictions/Additional Instructions: *You have been diagnosed with [acute urinary tract infection and Limon catheter problem. Thankfully your Limon catheter was easily flushed and is flowing appropriately now. As we discussed the urine obtained is consistent with infection and an antibiotic has been sent to your pharmacy] *What to do: *Please continue to take your regular medications as directed. [ x] New medication prescriptions sent to your pharmacy: [[facility] ] [ ] New medication written as a paper prescription [ ] No new medications given *Please follow up with your primary care provider in 2-3 days, call for an appointment. Let them know you were seen in the Emergency Department and that we ask that you be seen in follow up. We will electronically transmit a record of today's note if your PCP is in our system *Return to Emergency Department if you should have any new, worsening or concerning symptoms, such as [fever greater than 101 F, shaking chills, worsening pain, persistent vomiting, abnormal bleeding or other bothersome symptoms] Prescriptions: New cephalexin 500 mg capsule 500 mg PO BID Qty: 20 0RF No Action lisinopril 10 MG tablet 10 mg PO QDAY Qty: 0 finasteride 5 MG tablet 5 mg PO QDAY Qty: 0 metoprolol tartrate 100 MG tablet 200 mg PO BID Qty: 0 warfarin [Coumadin] 7.5 MG tablet 5 mg PO QDAY Qty: 0 digoxin [Lanoxin] 125 MCG tablet 0.125 mg PO QDAY Qty: 0 alfuzosin 10 mg tablet extended release 24 hr 10 mg PO DAILY spironolactone 25 mg Tablet 25 mg PO DAILY rosuvastatin 40 mg tablet 40 mg PO DAILY aspirin 81 mg Capsule 81 mg PO DAILY Referrals: New Fields MD [Primary Care Provider] - Stand Alone Forms: Patient Portal/API
[2022-09-10 07:50] VITALS: BP 131/58; PULSE 84; RESP 17; TEMP 36.9; O2SAT 98; BMI 26.8
[2022-09-10 08:05] LABS: Appearance Urine UA CLOUDY; Bilirubin Urine UA NEGATIVE (NEGATIVE); Color Urine UA YELLOW; Glucose Urine UA NEGATIVE (Negative); Ketones Urine UA NEGATIVE (NEGATIVE); Leukocyte Esterase Urine UA 2+ (NEGATIVE); Nitrite Urine UA NEGATIVE (Negative); Occult Blood Urine UA 3+ (Negative); Protein Urine UA 2+ (Negative); Specific Gravity Urine UA 1.025 (1.000-1.035); pH Urine UA 5.5 (4.5-8.0)
[2022-09-10 08:14] LABS: Bacteria Urine Many (>30); Culture Indicated Urine Specimen Cultured; RBC Urine 30-100/HPF (0-5/HPF); Squamous Epithelial Cell Urine 0-1 /HPF (0-5/HPF); WBC Urine >100/HPF (0-5/HPF)
--- NOTE | 2022-09-10 08:14 | PC.NURSE ---
0740 I attempted to flush catheter to dislodge possible clots. I was not able to pull back any liquid that was inserted. I then deflated the balloon of the catheter and pushed in the catheter farther until I got a flow of urine coming from the catheter. I then reinflated the balloon and replaced the urine bag with a full liter bag as it began draining a large amount of urine. Urine is dark orange in color and very cloudy. After a few minutes of urine draining he reported a decrease in flank pain.
== END 2022-09-10 08:35 | disposition home or self-care (01) ==
PROVIDERS: Emergency Provider Emergency Medicine; PCP Internal Medicine
DX: N39.0 Urinary tract infection, site not specified (principal); Z79.01 Long term (current) use of anticoagulants; Z79.899 Other long term (current) drug therapy
CPT/HCPCS: 51798; 81001; 87077; 87086; 87186; 99282